=== PATIENT | male | born 1955 | race Caucasian/White ===

== ENCOUNTER 2018-03-15 21:34 | Observation (INO) ==
[2018-03-16] MEDS ORDERED: Morphine Inj 4 MG/ML Vial IV.PUSH PRN (02:09)
[2018-03-16] MEDS: Sod Chloride 0.9% Inj 1,000 ML IV.SIG SCH ×3 (04:38→20:03)
[2018-03-16] MEDS: Piperacil/Tazo 3.375 GM Premix 50 ML IV.SIG SCH ×2 (11:07→20:43)
[2018-03-16] MEDS: Sod Chloride 0.9% Inj 1,000 ML IV.CONT SCH (11:08)
--- NOTE | 2018-03-16 12:31 | P.HP ---
<Stephanie Daniels W - Last Filed: 03/16/18 12:52> History of Present Illness Primary Care Physician: No Primary Care Physician Chief Complaint: abd pain, N/V History of Present Illness: This is a 62 year old male patient with a past medical history which includes polycystic liver disease and seizure reaction to, "all jaclyn." Patient started having abd pain around the end of January and was treated for assumed H. pylori infection with amoxicillin and Flagyl. Patient reports he ate a hamburger from [employer] 03/14/18 around 8:00 PM then began having abdominal pain around 0500 on 03/15/18. Patient then presented to [facility] ER with complaints of abdominal pain and distention that began around 5 AM on 03/15/18. Patient describes pain as a pressure-like pain with a sensation of something being stuck in his epigastric area. Reports pain radiates throughout his abdomen. Patient states that he had vomited about 7 times yesterday. Describes the vomitus as non-bloody and non-bilious. He states he is tried drinking water and taking Zantac with no improvement of symptoms. Patient's last had a bowel movement around 10 AM 03/15/18 but had to use an enema and was normal. Patient denies any fevers, chills, back pains, chest pain, shortness of breath, diarrhea. PMH: polycystic liver disease PSxH: Umbilical hernia repair x 2 tonsillectomy Family medical history: polycyclic liver disease in both brother and sister mother had lung CA father secondary to Social history: Denies ETOH use Denies Tobacco use now or in the past Denies Illicit drug use Medication allergies: reported allergy to, "all jaclyn" albuterol doxycycline lidocaine minocycline tigecycline Review of Systems All other systems reviewed negative except as stated in HPI PMFSH - History History Provided By: Patient - Medical History Medical History: Medical History (Last Updated 03/16/18 @ 04:40 by Janet Betancourt RN) Hypertension Polycystic liver disease Hernia Ulcer - Surgical History Surgical History: Surgical History (Last Reviewed 03/15/18 @ 22:05 by AUGUSTINE Moreno) Hx of hernia repair - Tobacco History Second Hand Smoke Exposure: No Smoking Status: Never smoker - Alcohol History How Often Do You Have a Drink Containing Alcohol: Never - Substance Use History Substance History: No History of Abuse Medications and Allergies Allergies Allergy/AdvReac Type Severity Reaction Status Date / Time albuterol Allergy Severe Seizures Verified 03/16/18 10:29 doxycycline Allergy Severe PT STATES Verified 03/16/18 10:29 LOWERS HIS IQ WHEN HE TAKES lidocaine Allergy Severe Seizures Verified 03/16/18 10:29 minocycline Allergy Severe PT STATES Verified 03/16/18 10:29 LOWER HIS IQ WHEN HE TAKES tigecycline Allergy Severe Seizures Verified 03/16/18 10:29 "ALL JACLYN" Allergy Severe SEIZUES Uncoded 03/16/18 10:29 Novacaine Allergy Severe Seizures Uncoded 03/16/18 10:29 Home Medications Medication Instructions Recorded Confirmed Type lactobacillus rhamnosus R0011 2 cap PO DAILY 03/16/18 03/16/18 History [Probiotic Digestive Care] Active Medications: Active Medications Al Hydroxide/Mg Hydroxide (Milk Of Melvina Liq) 30 ml PO Q12H PRN PRN Reason: Mild Constipation Enalaprilat (Vasotec Inj) 1.25 mg IV.PUSH Q6H PRN PRN Reason: SBP > 180 DBP > 90 Last Admin: 03/16/18 04:38 Dose: 1.25 mg Sodium Chloride (Ns Inj) 1,000 mls @ 125 mls/hr IV.SIG .Q8H [facility] Last Admin: 03/16/18 04:38 Dose: 125 mls/hr Sodium Chloride (Ns Inj) 1,000 mls @ 75 mls/hr IV.CONT .[id number] [facility] Last Admin: 03/16/18 11:08 Dose: Not Given Piperacillin/Tazobactam/Dextrose (Zosyn 3.375 Gm Premix) 50 mls @ 100 mls/hr IV.SIG Q8H [facility] Last Admin: 03/16/18 11:07 Dose: 100 mls/hr Morphine Sulfate (Morphine Inj) 2 mg IV.PUSH Q4H PRN PRN Reason: PAIN 1-10 Ondansetron HCl (Zofran Odt) 4 mg PO Q6H PRN PRN Reason: NAUSEA Senna/Docusate Sodium (Janine-Colace) 1 tab PO BID [facility] Exam Vital signs: Vital Signs 03/16/18 04:00 03/16/18 08:00 03/16/18 12:00 Temperature 98.7 F 98.8 F 98.7 F Pulse Rate 76 80 79 Respiratory Rate 17 16 16 Blood Pressure 170/106 H 136/84 139/91 H Pulse Oximetry 94 L 94 L 94 L Intake & Output 03/15/18 03/16/18 03/16/18 18:59 06:59 18:59 Intake Total 0 / 0 Output Total 250 / 250 200 / 200 Balance -250 / -250 -200 / -200 Weight 90.45 kg Intake: Oral 0 / 0 Output: Urine 250 / 250 200 / 200 Other: Weight On Admission 90.45 kg Narrative: GENERAL: This is a well-nourished, well-developed patient, in no apparent distress. CARDIOVASCULAR: Regular rate and rhythm RESPIRATORY: Clear to auscultation. Breath sounds equal bilaterally. GASTROINTESTINAL: Abdomen soft, tender bilateral upper quadrants worse RUQ, distended. liver 4-5 finger breaths below rib cage, Normal active bowel sounds MUSCULOSKELETAL: Extremities without clubbing, cyanosis, or edema. NEURO: Alert & Oriented x4 to person, place, time, situation. Moves all ext x4 Caprini VTE Risk Assessment Caprini VTE Risk Assessment: No/Low Risk (score <= 1) Caprini Risk Assessment Model: Point Value = 1 Point Value = 2 Point Value = 3 Point Value = 5 Age 41-60 Minor surgery BMI > 25 kg/m2 Swollen legs Varicose veins or History of unexplained or recurrent spontaneous Oral contraceptives or hormone replacement Sepsis (< 1 month) Serious lung disease, including pneumonia (< 1 month) Abnormal pulmonary function Acute myocardial infarction Congestive heart failure (< 1 month) History of inflammatory bowel disease Medical patient at bed rest Age 61-74 Arthroscopic surgery Major open surgery (> 45 min) Laparoscopic surgery (> 45 min) Malignancy Confined to bed (> 72 hours) Immobilizing plaster cast Central venous access Age >= 75 History of VTE Family history of VTE Factor V Leiden Prothrombin [id number] Lupus anticoagulant Anticardiolipin antibodies Elevated serum homocysteine Heparin-induced thrombocytopenia Other congenital or acquired thrombophilia Stroke (< 1 month) Elective arthroplasty Hip, pelvis, or leg fracture Acute spinal cord injury (< 1 month) Prophylaxis Regimen: Total Risk Factor Score Risk Level Prophylaxis Regimen 0-1 Low Early ambulation 2 Moderate Order ONE of the following: *Sequential Compression Device (SCD) *Heparin 5000 units SQ BID 3-4 Higher Order ONE of the following medications: *Heparin 5000 units SQ TID *Enoxaparin/Lovenox 40 mg SQ daily (WT < 150 kg, CrCl > 30 mL/min) *Enoxaparin/Lovenox 30 mg SQ daily (WT < 150 kg, CrCl > 10-29 mL/min) *Enoxaparin/Lovenox 30 mg SQ BID (WT < 150 kg, CrCl > 30 mL/min) AND/OR *Sequential Compression Device (SCD) 5 or more Highest Order ONE of the following medications: *Heparin 5000 units SQ TID (Preferred with Epidurals) *Enoxaparin/Lovenox 40 mg SQ daily (WT < 150 kg, CrCl > 30 mL/min) *Enoxaparin/Lovenox 30 mg SQ daily (WT < 150 kg, CrCl > 10-29 mL/min) *Enoxaparin/Lovenox 30 mg SQ BID (WT < 150 kg, CrCl > 30 mL/min) AND *Sequential Compression Device (SCD) Assessment and Plan - Plan abd pain N/V abnormal abd CT, concern for pancreatic mass Supportive care abnormal CT abd/pelvis with contrast 03/16/18: 1. Ill-defined mass in the head of the pancreas measuring between 3 and 4 cm in diameter and suspicious for pancreatic malignancy. There is some surrounding adenopathy with largest lymph node measuring up to 3.2 x 1.3 cm just anterior to the left renal vein. 2. Innumerable circumscribed low-attenuation lesions in the liver. Differential diagnosis includes simple and complex cysts but cannot exclude metastatic disease. awaiting repeat CMP to check creatinine after CT with contrast plan to order MRI if creatinine is acceptable Patient currently NPO repeat CMP, CBC pending IVF for hydration SCDs for DVT prophylaxis <Deny Ennis - Last Filed: 03/16/18 14:48> History of Present Illness Primary Care Physician: No Primary Care Physician Inpatient Certification: I certify that the inpatient services were ordered in accordance with Medicare regulations governing the order. This includes certification that hospital inpatient services are reasonable and necessary and in the case of services not specified as inpatient-only under 42 CFR 419.22(n), that they are appropriately provided as inpatient services in accordance to with the 2-midnight benchmark under 43 CFR 412.3(e) [facility] - Medical History Medical History: Medical History (Last Updated 03/16/18 @ 04:40 by Janet Betancourt RN) Hypertension Polycystic liver disease Hernia Ulcer - Surgical History Surgical History: Surgical History (Last Reviewed 03/15/18 @ 22:05 by AUGUSTINE Moreno) Hx of hernia repair Medications and Allergies Active Medications: Active Medications Al Hydroxide/Mg Hydroxide (Milk Of Magnbria Liq) 30 ml PO Q12H PRN PRN Reason: Mild Constipation Enalaprilat (Vasotec Inj) 1.25 mg IV.PUSH Q6H PRN PRN Reason: SBP > 180 DBP > 90 Last Admin: 03/16/18 04:38 Dose: 1.25 mg Sodium Chloride (Ns Inj) 1,000 mls @ 125 mls/hr IV.SIG .Q8H [facility] Last Admin: 03/16/18 04:38 Dose: 125 mls/hr Sodium Chloride (Ns Inj) 1,000 mls @ 75 mls/hr IV.CONT .[id number] [facility] Last Admin: 03/16/18 11:08 Dose: Not Given Piperacillin/Tazobactam/Dextrose (Zosyn 3.375 Gm Premix) 50 mls @ 100 mls/hr IV.SIG Q8H [facility] Last Admin: 03/16/18 11:07 Dose: 100 mls/hr Morphine Sulfate (Morphine Inj) 2 mg IV.PUSH Q4H PRN PRN Reason: PAIN 1-10 Ondansetron HCl (Zofran Odt) 4 mg PO Q6H PRN PRN Reason: NAUSEA Senna/Docusate Sodium (Janine-Colace) 1 tab PO BID [facility] Exam Vital signs: Vital Signs 03/16/18 04:00 03/16/18 08:00 03/16/18 12:00 Temperature 98.7 F 98.8 F 98.7 F Pulse Rate 76 80 79 Respiratory Rate 17 16 16 Blood Pressure 170/106 H 136/84 139/91 H Pulse Oximetry 94 L 94 L 94 L Intake & Output 03/15/18 03/16/18 03/16/18 18:59 06:59 18:59 Intake Total 0 / 0 Output Total 250 / 250 200 / 200 Balance -250 / -250 -200 / -200 Weight 90.45 kg Intake: Oral 0 / 0 Output: Urine 250 / 250 200 / 200 Other: Weight On Admission 90.45 kg Results - Labs CBC & Chem 7: 03/16/18 13:00 07/18/18 13:00 Labs: Laboratory Results - last 24 hr 03/16/18 03/16/18 03/16/18 13:00 13:00 13:00 WBC 15.2 H RBC 5.44 Hgb 15.7 Hct 46.3 MCV 85.1 MCH 28.8 MCHC 33.8 RDW 13.5 Plt Count 270 MPV 8.8 Neut % (Auto) 80.2 H Lymph % (Auto) 8.8 L [place] % (Auto) 9.9 H Eos % (Auto) 0.6 Baso % (Auto) 0.5 Neut # (Auto) 12.2 H Lymph # (Auto) 1.3 [place] # (Auto) 1.5 H Eos # (Auto) 0.1 Baso # (Auto) 0.1 WBC Differential . Differential Comment Auto diff final Sodium 140 Potassium 3.5 Chloride 105 Carbon Dioxide 28.7 Anion Gap 6 BUN 10 Creatinine 1.01 Estimated GFR 75 L Random Glucose 139 H Calcium 8.5 D Total Bilirubin 0.9 AST 381 H ALT 64 Alkaline Phosphatase 67 Total Protein 7.8 D Albumin 3.7 Lipase 73 Caprini VTE Risk Assessment Caprini Risk Assessment Model: Point Value = 1 Point Value = 2 Point Value = 3 Point Value = 5 Age 41-60 Minor surgery BMI > 25 kg/m2 Swollen legs Varicose veins or History of unexplained or recurrent spontaneous Oral contraceptives or hormone replacement Sepsis (< 1 month) Serious lung disease, including pneumonia (< 1 month) Abnormal pulmonary function Acute myocardial infarction Congestive heart failure (< 1 month) History of inflammatory bowel disease Medical patient at bed rest Age 61-74 Arthroscopic surgery Major open surgery (> 45 min) Laparoscopic surgery (> 45 min) Malignancy Confined to bed (> 72 hours) Immobilizing plaster cast Central venous access Age >= 75 History of VTE Family history of VTE Factor V Leiden Prothrombin [id number] Lupus anticoagulant Anticardiolipin antibodies Elevated serum homocysteine Heparin-induced thrombocytopenia Other congenital or acquired thrombophilia Stroke (< 1 month) Elective arthroplasty Hip, pelvis, or leg fracture Acute spinal cord injury (< 1 month) Prophylaxis Regimen: Total Risk Factor Score Risk Level Prophylaxis Regimen 0-1 Low Early ambulation 2 Moderate Order ONE of the following: *Sequential Compression Device (SCD) *Heparin 5000 units SQ BID 3-4 Higher Order ONE of the following medications: *Heparin 5000 units SQ TID *Enoxaparin/Lovenox 40 mg SQ daily (WT < 150 kg, CrCl > 30 mL/min) *Enoxaparin/Lovenox 30 mg SQ daily (WT < 150 kg, CrCl > 10-29 mL/min) *Enoxaparin/Lovenox 30 mg SQ BID (WT < 150 kg, CrCl > 30 mL/min) AND/OR *Sequential Compression Device (SCD) 5 or more Highest Order ONE of the following medications: *Heparin 5000 units SQ TID (Preferred with Epidurals) *Enoxaparin/Lovenox 40 mg SQ daily (WT < 150 kg, CrCl > 30 mL/min) *Enoxaparin/Lovenox 30 mg SQ daily (WT < 150 kg, CrCl > 10-29 mL/min) *Enoxaparin/Lovenox 30 mg SQ BID (WT < 150 kg, CrCl > 30 mL/min) AND *Sequential Compression Device (SCD) Assessment and Plan - Attending Attestation Patient examined. Assessment and plan formulated with Stephanie Daniels PA-C. I agree with the above. await result of MRI A/P with contrast
[2018-03-16 13:32] LABS: Albumin 3.7 g/dL (3.4-5.0); Anion Gap 6 meq/L (5-15); Aspartate Aminotransferase 381 U/L (15-37); Blood Urea Nitrogen 10 mg/dL (7-18); Calcium 8.5 mg/dL (8.5-10.1); Carbon Dioxide 28.7 meq/L (21.0-32.0); Chloride 105 meq/L (98-107); Glomerular Filtration Rate 75 mL/min (>89); Glucose,Random 139 mg/dL (74-106); Potassium 3.5 meq/L (3.5-5.1); Sodium 140 meq/L (136-145)
[2018-03-16 13:35] LABS: Alanine Aminotransferase 64 U/L (12-78); Alkaline Phosphatase 67 U/L (45-117); Total Protein 7.8 g/dL (6.4-8.2)
[2018-03-16 13:54] LABS: Baso # (Auto) 0.1 th/mm3 (0.0-0.2); Baso % (Auto) 0.5 % (0.0-2.0); Eos # (Auto) 0.1 th/mm3 (0.0-0.4); Eos % (Auto) 0.6 % (0.0-4.0); Hematocrit 46.3 % (39.0-51.0); Hemoglobin 15.7 gm/dL (13.0-17.0); Lymph # (Auto) 1.3 th/mm3 (1.0-4.8); Lymph % (Auto) 8.8 % (9.0-44.0); Mean Corpuscular HGB Conc 33.8 % (32.0-36.0); Mean Corpuscular Hemoglobin 28.8 pg (27.0-34.0); Mean Corpuscular Volume 85.1 fL (80.0-100.0); Mean Platelet Volume 8.8 fL (7.0-11.0); Mono # (Auto) 1.5 th/mm3 (0.0-0.9); Mono % (Auto) 9.9 % (0.0-8.0); Neut # (Auto) 12.2 th/mm3 (1.8-7.7); Neut % (Auto) 80.2 % (16.0-70.0); Platelet Count 270 th/mm3 (150-450); Red Blood Count 5.44 mil/mm3 (4.50-5.90); Red Cell Distribution Width 13.5 % (11.6-17.2); White Blood Count 15.2 th/mm3 (4.0-11.0)
[2018-03-16] MEDS ORDERED: Gadobutrol PF 10 MMOL/10 ML Vial (for RAD) IV.SIG ONE (18:55)
[2018-03-16] MEDS: Senna/Docusate Sodium 8.6/50 MG Tablet PO SCH (20:43)
--- NOTE | 2018-03-16 23:21 | MR ---
EXAM DATE: 03/16/2018 7:34 PM EDT AGE/SEX: 62 years / Male INDICATIONS: Mass. Abnormal CT, liver cyst and pancreatic mass. CLINICAL DATA: This is the patient's initial encounter. Patient reports that signs and symptoms have been present for 1 day and indicates a pain score of 0/10. MEDICAL/SURGICAL HISTORY: Hypertension. Polycystic Liver Disease, Ulcer, Hernia Inguinal herni a repair. COMPARISON: [facility], CT ABDOMEN & PELVIS W/O CONTRAST, 03/15/2018. [facility], CT ABDOMEN & PELVIS W CONT RAST, 03/16/2018. . TECHNIQUE: Multiplanar, multisequence images of the abdomen were obtained prior to and following adm inistration of 9 ml Gadavist (gadobutrol) contrast as a single exam dose with dynamic multiphase tech nique. FINDINGS: Liver: Innumerable varying size simple cysts throughout the liver measuring in size from several mill imeters to 5.5 cm. The cyst been present on prior CTs dating back to 2009. No abnormal areas of enhan cement within the hepatic parenchyma. Gallbladder: No gallstones seen. Spleen: The spleen is unremarkable. Pancreas: Abnormal appearance to the head of the pancreas with rounded area of signal abnormality jodie suring 3.7 x 4.4 cm. There is mild T2 prolongation and T1 prolongation; on dynamic postcontrast imagi ng, there is some questionable mild peripheral enhancement. The body and tail the pancreas are normal in appearance. No pancreatic ductal dilatation. No peripancreatic fluid. No peripancreatic fatty ind uration. Adrenals: The adrenal glands appear normal. Kidneys: Both kidneys appear normal with symmetric nephrograms and no focal parenchymal abnormalities . There is no hydronephrosis on either side. A few small cortical cysts are present bilaterally. Retroperitoneum: The aorta is unremarkable. There is no pathologic abdominal lymphadenopathy. CONCLUSION: 1. 4 cm partially cystic masslike abnormality in the head of the pancreas does not demonstrate signi ficant enhancement. Malignancy cannot be excluded. May consider performing outpatient PET/CT scan wit h fluorodeoxyglucose to evaluate whether this is a metabolically active lesion and to help in decisio n making regarding possible biopsy. 2. Numerous simple cysts throughout the liver and a few renal cysts have benign characteristics. Electronically signed by: Jorge L Oreilly MD 03/16/2018 11:20 PM EDT
[2018-03-17] MEDS: Sod Chloride 0.9% Inj 1,000 ML IV.CONT SCH (01:44)
[2018-03-17] MEDS: Piperacil/Tazo 3.375 GM Premix 50 ML IV.SIG SCH ×3 (02:06→19:32)
[2018-03-17 07:22] LABS: Baso % (Auto) 0.1 % (0.0-2.0); Eos # (Auto) 0.1 th/mm3 (0.0-0.4); Eos % (Auto) 0.3 % (0.0-4.0); Hematocrit 43.8 % (39.0-51.0); Hemoglobin 14.8 gm/dL (13.0-17.0); Lymph # (Auto) 1.6 th/mm3 (1.0-4.8); Lymph % (Auto) 9.7 % (9.0-44.0); Mean Corpuscular HGB Conc 33.8 % (32.0-36.0); Mean Corpuscular Hemoglobin 28.9 pg (27.0-34.0); Mean Corpuscular Volume 85.8 fL (80.0-100.0); Mono # (Auto) 1.9 th/mm3 (0.0-0.9); Mono % (Auto) 11.6 % (0.0-8.0); Neut # (Auto) 12.5 th/mm3 (1.8-7.7); Neut % (Auto) 78.3 % (16.0-70.0); Platelet Count 232 th/mm3 (150-450); Red Blood Count 5.11 mil/mm3 (4.50-5.90); Red Cell Distribution Width 13.6 % (11.6-17.2)
[2018-03-17 07:32] LABS: Albumin 3.3 g/dL (3.4-5.0); Anion Gap 11 meq/L (5-15); Aspartate Aminotransferase 189 U/L (15-37); Blood Urea Nitrogen 11 mg/dL (7-18); Calcium 8.6 mg/dL (8.5-10.1); Carbon Dioxide 24.9 meq/L (21.0-32.0); Chloride 103 meq/L (98-107); Glomerular Filtration Rate 82 mL/min (>89); Glucose,Random 121 mg/dL (74-106); Potassium 3.4 meq/L (3.5-5.1); Sodium 139 meq/L (136-145)
[2018-03-17 07:34] LABS: Alanine Aminotransferase 50 U/L (12-78)
[2018-03-17 07:36] LABS: Alkaline Phosphatase 63 U/L (45-117); Total Protein 7.4 g/dL (6.4-8.2)
[2018-03-17] MEDS: Senna/Docusate Sodium 8.6/50 MG Tablet PO SCH ×2 (09:34→20:10)
[2018-03-17] MEDS: Sod Chloride 0.9% Inj 1,000 ML IV.SIG SCH (09:34)
--- NOTE | 2018-03-17 11:24 | P.PNIM ---
Subjective Interval history: No new complaints. Physical Exam Vital signs: Vital Signs 03/16/18 12:00 03/16/18 16:00 03/16/18 19:27 Temperature 98.7 F 99.0 F 98.7 F Pulse Rate 79 78 89 Respiratory Rate 16 18 17 Blood Pressure 139/91 H 171/85 H 153/86 H Pulse Oximetry 94 L 95 92 L Narrative: GENERAL: This is a well-nourished, well-developed patient, in no apparent distress. CARDIOVASCULAR: Regular rate and rhythm without murmurs, gallops, or rubs. RESPIRATORY: Clear to auscultation. Breath sounds equal bilaterally. No wheezes , rales, or rhonchi. GASTROINTESTINAL: Abdomen soft, non-tender, nondistended. Normal active bowel sounds liver is palpable 4 inches below the rib margin on the right MUSCULOSKELETAL: Extremities without clubbing, cyanosis, or edema. NEURO: Alert & Oriented x4 to person, place, time, situation. Moves all ext x4 Results - Labs CBC & Chem 7: 03/17/18 06:15 03/17/18 06:15 Laboratory Results - last 24 hr 03/16/18 03/16/18 03/16/18 13:00 13:00 13:00 WBC 15.2 H RBC 5.44 Hgb 15.7 Hct 46.3 MCV 85.1 MCH 28.8 MCHC 33.8 RDW 13.5 Plt Count 270 MPV 8.8 Neut % (Auto) 80.2 H Lymph % (Auto) 8.8 L [place] % (Auto) 9.9 H Eos % (Auto) 0.6 Baso % (Auto) 0.5 Neut # (Auto) 12.2 H Lymph # (Auto) 1.3 [place] # (Auto) 1.5 H Eos # (Auto) 0.1 Baso # (Auto) 0.1 WBC Differential . Differential Comment Auto diff final Sodium 140 Potassium 3.5 Chloride 105 Carbon Dioxide 28.7 Anion Gap 6 BUN 10 Creatinine 1.01 Estimated GFR 75 L Random Glucose 139 H Calcium 8.5 D Total Bilirubin 0.9 AST 381 H ALT 64 Alkaline Phosphatase 67 Total Protein 7.8 D Albumin 3.7 Lipase 73 03/17/18 03/17/18 06:15 06:15 WBC 16.0 H RBC 5.11 Hgb 14.8 Hct 43.8 MCV 85.8 MCH 28.9 MCHC 33.8 RDW 13.6 Plt Count 232 MPV 9.0 Neut % (Auto) 78.3 H Lymph % (Auto) 9.7 [place] % (Auto) 11.6 H Eos % (Auto) 0.3 Baso % (Auto) 0.1 Neut # (Auto) 12.5 H Lymph # (Auto) 1.6 [place] # (Auto) 1.9 H Eos # (Auto) 0.1 Baso # (Auto) 0.0 WBC Differential . Differential Comment Auto diff final Sodium 139 Potassium 3.4 L Chloride 103 Carbon Dioxide 24.9 Anion Gap 11 BUN 11 Creatinine 0.93 Estimated GFR 82 L Random Glucose 121 H Calcium 8.6 Total Bilirubin 1.0 AST 189 H ALT 50 Alkaline Phosphatase 63 Total Protein 7.4 Albumin 3.3 L Lipase - Imaging CT abd/pelvis wihout contrast (03/15) CONCLUSION: 1. There is a suspected mass in the pancreatic head measuring up to 4 cm in diameter. Innumerable hepatic lesions present of uncertain etiology. Consider complex cysts or necrotic metastatic lesions. Further evaluation with MRI of the abdomen with contrast recommended. 2. Mildly enlarged lymph nodes in bernabe hepatis. Probable layering gallstones within the gallbladder. CT abd/pelvis with IV contrast (03/16) CONCLUSION: 1. Ill-defined mass in the head of the pancreas measuring between 3 and 4 cm in diameter and suspicious for pancreatic malignancy. There is some surrounding adenopathy with largest lymph node measuring up to 3.2 x 1.3 cm just anterior to the left renal vein. 2. Innumerable circumscribed low-attenuation lesions in the liver. Differential diagnosis includes simple and complex cysts but cannot exclude metastatic disease. Abdomen MRI 03/16/18 CONCLUSION: 1. 4 cm partially cystic masslike abnormality in the head of the pancreas does not demonstrate significant enhancement. Malignancy cannot be excluded. May consider performing outpatient PET/CT scan with fluorodeoxyglucose to evaluate whether this is a metabolically active lesion and to help in decision making regarding possible biopsy. 2. Numerous simple cysts throughout the liver and a few renal cysts have benign characteristics. Assessment and Plan - Assessment (1) Abdominal pain Code(s): R10.9 - Unspecified abdominal pain Status: Acute Plan: - 62 y/o M with h/o polycystic liver disease and seizure reaction to, "all rosa." - Patient started having abd pain around the end of January and was treated for assumed H. pylori infection with amoxicillin and Flagyl. - Patient reports he ate a hamburger from [employer] 03/14/18 around 8:00 PM then began having abdominal pain around 0500 on 03/15/18. - Patient then presented to [facility] ER with complaints of abdominal pain and distention that began around 5 AM on 03/15/18. - Patient describes pain as a pressure-like pain with a sensation of something being stuck in his epigastric area. Reports pain radiates throughout his abdomen. - Patient states that he had vomited about 7 times the day prior to admission - Pt describes the vomitus as non-bloody and non-bilious. - Pt states he tried drinking water and taking Zantac with no improvement of symptoms. - CT a/p without contrast (03/15) - suspected head of the Pancrease mass - innumerable hepatic lesions (c/w pt's hx of polycystic liver disease) - CT A/P with contrast (03/16) - head of the pancrease mass - some surrounding adenopathy with largest LN 3.2 x 1.3 cm anterior to the left renal vein - innumerable hepatic lesions - MRI A/P with contrast (03/16) - 4cm cystic masslike abnormality in the head of the pancreas without significant enhancement - PET/CT recommended - numerous simple cyst thourout the fiver & a few renal cysts with benign characteristics - AST 461 (03/15), 381 (03/16), 189 (03/17). Alcohol abuse? - leukocytosis, unclear etiology. -WBC 18 (03/15), 15 (03/16), 16 (03/17) - continue zosyn for now (03/15 - present) - CXR (03/15) --> no acute findings - UA (03/15) --> moderate occult blood, cx NOT indicated - obtain repeat UA - Case d/w Oncology, Dr. Brandon Parr. He will consult - Case d/w Gastroenterology, Dr. Alvarez. He will consult - Repeat CBC, CMP in AM 03/18 - continue NPO for now - possible EUS with Pancrease Bx later today or 03/18 - DVT prophylaxis with SCDs - supportive care (2) Leukocytosis, unspecified Code(s): D72.829 - Elevated white blood cell count, unspecified Status: Acute Plan: - see above (3) Pancreatic lesion Code(s): K86.9 - Disease of pancreas, unspecified Status: Acute Plan: - see above (4) Polycystic liver disease, congenital Code(s): Q44.6 - Cystic disease of liver Status: Acute (1) Abdominal pain Qualifiers: Qualified Code(s): R10.84 - Generalized abdominal pain
--- NOTE | 2018-03-17 13:04 | P.CONGI ---
History of Present Illness Consult date: 03/17/18 Consult reason: Pancreatic mass Chief complaint: Pancreatic mass, vomiting History of Present Illness: This is a 62 yo M with PMH significant for polycystic liver disease and history of H. Pylori infection who presented to the [place] [facility] yesterday with complaints of abdominal pain, nausea and vomiting that began 4 days ago. Pt had some abdominal pain in early January after a small amount of alcohol that he states was similar to the pains he had when he had a prior H Pylori infection. His PCP at [facility] prescribed him Amoxicillin and Flagyl, which he states he completed the entire course and did get complete resolution from his abdominal pain until four days ago. Pt reports having hamburgers the night before the pain began. Pain is now located in his mid abdomen above his umbilicus, constant, described as aching. Has tried aloe juice, CBD oil, and probiotics with no relief. Also notes nausea and vomiting, denies hematemesis and coffee ground emesis. Denies unintentional weight loss, has lost 36 pounds over the past 2 years but states this was intentional. Denies personal or family history of pancreatic issues. Admits to drinking 3 times per week. Denies new OTC or prescription medication. Last EGD 20 years ago and states normal exam. Last colonoscopy done 2 years ago and believes they removed some polyps. <Geni Stevens - Last Filed: 03/17/18 13:06> Review of Systems Gastrointestinal: Reports abdominal pain, Reports nausea, Reports vomiting <Geni Stevens - Last Filed: 03/17/18 13:06> [facility] - History History Provided By: Patient - Medical History Medical History: Medical History (Last Updated 03/16/18 @ 04:40 by Janet Betancourt RN) Hypertension Polycystic liver disease Hernia Ulcer - Surgical History Surgical History: Surgical History (Last Reviewed 03/15/18 @ 22:05 by AUGUSTINE Moreno) Hx of hernia repair - Tobacco History Second Hand Smoke Exposure: No Smoking Status: Never smoker - Alcohol History How Often Do You Have a Drink Containing Alcohol: Never - Substance Use History Substance History: No History of Abuse <Geni Stevens - Last Filed: 03/17/18 13:06> - Medical History Medical History: Medical History (Last Updated 03/16/18 @ 04:40 by Janet Betancourt RN) Hypertension Polycystic liver disease Hernia Ulcer - Surgical History Surgical History: Surgical History (Last Reviewed 03/15/18 @ 22:05 by AUGUSTINE Moreno) Hx of hernia repair <Cliev Alvarez - Last Filed: 03/17/18 17:58> Medications and Allergies Active Medications: Active Medications Al Hydroxide/Mg Hydroxide (Milk Of Magnesia Liq) 30 ml PO Q12H PRN PRN Reason: Mild Constipation Enalaprilat (Vasotec Inj) 1.25 mg IV.PUSH Q6H PRN PRN Reason: SBP > 180 DBP > 90 Last Admin: 03/16/18 04:38 Dose: 1.25 mg Sodium Chloride (Ns Inj) 1,000 mls @ 125 mls/hr IV.SIG .Q8H [facility] Last Admin: 03/17/18 09:34 Dose: Not Given Sodium Chloride (Ns Inj) 1,000 mls @ 75 mls/hr IV.CONT .[id number] [facility] Last Admin: 03/17/18 01:44 Dose: 75 mls/hr Piperacillin/Tazobactam/Dextrose (Zosyn 3.375 Gm Premix) 50 mls @ 100 mls/hr IV.SIG Q8H [facility] Last Admin: 03/17/18 11:16 Dose: 100 mls/hr Morphine Sulfate (Morphine Inj) 2 mg IV.PUSH Q4H PRN PRN Reason: PAIN 1-10 Ondansetron HCl (Zofran Odt) 4 mg PO Q6H PRN PRN Reason: NAUSEA Senna/Docusate Sodium (Janine-Colace) 1 tab PO BID [facility] Last Admin: 03/17/18 09:34 Dose: 1 tab <Geni Stevens - Last Filed: 03/17/18 13:06> Active Medications: Active Medications Al Hydroxide/Mg Hydroxide (Milk Of Magnesia Liq) 30 ml PO Q12H PRN PRN Reason: Mild Constipation Chlorhexidine Gluconate (Chlorhexidine 2% Cloth) 3 pack TOPICAL NETWORK ANN[employer]NCER [facility] Stop: 03/20/18 13:36 Enalaprilat (Vasotec Inj) 1.25 mg IV.PUSH Q6H PRN PRN Reason: SBP > 180 DBP > 90 Last Admin: 03/16/18 04:38 Dose: 1.25 mg Piperacillin/Tazobactam/Dextrose (Zosyn 3.375 Gm Premix) 50 mls @ 100 mls/hr IV.SIG Q8H [facility] Last Admin: 03/17/18 11:16 Dose: 100 mls/hr Potassium Chloride/Sodium Chloride (Ns + Kcl 20 Meq Inj) 1,000 mls @ 75 mls/hr IV.CONT .[id number] [facility] Lactated Ringer's (Lr 1000 Ml Inj) 1,000 mls @ 30 mls/hr IV.SIG .Q24H [facility] Stop: 03/20/18 13:36 Sodium Chloride (Ns Inj) 500 mls @ 30 mls/hr IV.SIG .Q10H [facility] Stop: 03/20/18 13:36 Metoprolol Tartrate (Lopressor) 25 mg PO NETWORK ANN[employer]NCER [facility] Stop: 03/20/18 13:36 Morphine Sulfate (Morphine Inj) 2 mg IV.PUSH Q4H PRN PRN Reason: PAIN 1-10 Ondansetron HCl (Zofran Odt) 4 mg PO Q6H PRN PRN Reason: NAUSEA Povidone Iodine (Betadine 5% Antisepsis Kit) 1 applicatio EACH NARE NETWORK ANN[employer]NCER [facility] Stop: 03/20/18 13:36 Senna/Docusate Sodium (Janine-Colace) 1 tab PO BID [facility] Last Admin: 03/17/18 09:34 Dose: 1 tab <Clive Alvarez E - Last Filed: 03/17/18 17:58> Allergies Allergy/AdvReac Type Severity Reaction Status Date / Time albuterol Allergy Severe Seizures Verified 03/16/18 10:29 doxycycline Allergy Severe PT STATES Verified 03/16/18 10:29 LOWERS HIS IQ WHEN HE TAKES lidocaine Allergy Severe Seizures Verified 03/16/18 10:29 minocycline Allergy Severe PT STATES Verified 03/16/18 10:29 LOWER HIS IQ WHEN HE TAKES tigecycline Allergy Severe Seizures Verified 03/16/18 10:29 "ALL JACLYN" Allergy Severe SEIZUES Uncoded 03/16/18 10:29 Novacaine Allergy Severe Seizures Uncoded 03/16/18 10:29 Home Medications Medication Instructions Recorded Confirmed Type lactobacillus rhamnosus R0011 2 cap PO DAILY 03/16/18 03/16/18 History [Probiotic Digestive Care] Exam Vital signs: Vital Signs 03/16/18 16:00 18 19:27 03/16/18 23:40 Temperature 99.0 F 98.7 F 98.3 F Pulse Rate 78 89 84 Respiratory Rate 18 17 17 Blood Pressure 171/85 H 153/86 H 129/76 Pulse Oximetry 95 92 L 92 L 03/17/18 03:31 03/17/18 08:00 03/17/18 12:00 Temperature 98.7 F 99.2 F 98.3 F Pulse Rate 82 83 Respiratory Rate 17 16 16 Blood Pressure 127/78 137/89 142/88 H Pulse Oximetry 92 L 95 96 Intake & Output 03/16/18 03/17/18 03/17/18 18:59 06:59 18:59 Intake Total 1390 / 1390 Output Total 200 / 200 300 / 300 Balance -200 / -200 1390 / 1390 -300 / -300 Weight 90.45 kg Intake: IV 1150 / 1150 Zosyn 3.375 GM Premix 50 ML @ 150 / 150 100 mls/hr IV.SIG Q8H [facility] Rx#: [id number] NS Inj 1,000 ML @ 125 mls/hr IV 1000 / 1000 .SIG .Q8H [facility] Rx#:[id number] Oral 240 / 240 Output: Urine 200 / 200 300 / 300 Other: # Voids 3 Weight On Admission 90.45 kg - Constitutional no acute distress - Routine HEENT Exam Head: Present: normocephalic, atraumatic - Routine Respiratory Exam Absent: accessory muscle use - Routine Cardiovascular Exam Present: RRR - Routine Abdominal Exam Present: soft, normoactive bowel sounds, tenderness (RUQ and epigastric tenderness ), distended - Routine Skin Exam Present: dry, warm - Routine Neurological Exam Present: alert, oriented X3 <Geni Stevens - Last Filed: 03/17/18 13:06> Vital signs: Vital Signs 03/16/18 19:27 18 23:40 03/17/18 03:31 Temperature 98.7 F 98.3 F 98.7 F Pulse Rate 89 84 82 Respiratory Rate 17 17 17 Blood Pressure 153/86 H 129/76 127/78 Pulse Oximetry 92 L 92 L 92 L 03/17/18 08:00 03/17/18 12:00 Temperature 99.2 F 98.3 F Pulse Rate 83 Respiratory Rate 16 16 Blood Pressure 137/89 142/88 H Pulse Oximetry 95 96 Intake & Output 03/16/18 03/17/18 03/17/18 18:59 06:59 18:59 Intake Total 1390 / 1390 Output Total 200 / 200 300 / 300 Balance -200 / -200 1390 / 1390 -300 / -300 Weight 90.45 kg Intake: IV 1150 / 1150 Zosyn 3.375 GM Premix 50 ML @ 150 / 150 100 mls/hr IV.SIG Q8H [facility] Rx#: [id number] NS Inj 1,000 ML @ 125 mls/hr IV 1000 / 1000 .SIG .Q8H [facility] Rx#:[id number] Oral 240 / 240 Output: Urine 200 / 200 300 / 300 Other: # Voids 3 Weight On Admission 90.45 kg <Clive Alvarez E - Last Filed: 03/17/18 17:58> Results - Labs CBC & Chem 7: 03/17/18 06:15 03/17/18 06:15 Labs: Laboratory Results - last 24 hr 03/16/18 03/16/18 03/16/18 13:00 13:00 13:00 WBC 15.2 H RBC 5.44 Hgb 15.7 Hct 46.3 MCV 85.1 MCH 28.8 MCHC 33.8 RDW 13.5 Plt Count 270 MPV 8.8 Neut % (Auto) 80.2 H Lymph % (Auto) 8.8 L [place] % (Auto) 9.9 H Eos % (Auto) 0.6 Baso % (Auto) 0.5 Neut # (Auto) 12.2 H Lymph # (Auto) 1.3 [place] # (Auto) 1.5 H Eos # (Auto) 0.1 Baso # (Auto) 0.1 WBC Differential . Differential Comment Auto diff final Sodium 140 Potassium 3.5 Chloride 105 Carbon Dioxide 28.7 Anion Gap 6 BUN 10 Creatinine 1.01 Estimated GFR 75 L Random Glucose 139 H Calcium 8.5 D Total Bilirubin 0.9 AST 381 H ALT 64 Alkaline Phosphatase 67 Total Protein 7.8 D Albumin 3.7 Lipase 73 03/17/18 03/17/18 06:15 06:15 WBC 16.0 H RBC 5.11 Hgb 14.8 Hct 43.8 MCV 85.8 MCH 28.9 MCHC 33.8 RDW 13.6 Plt Count 232 MPV 9.0 Neut % (Auto) 78.3 H Lymph % (Auto) 9.7 [place] % (Auto) 11.6 H Eos % (Auto) 0.3 Baso % (Auto) 0.1 Neut # (Auto) 12.5 H Lymph # (Auto) 1.6 [place] # (Auto) 1.9 H Eos # (Auto) 0.1 Baso # (Auto) 0.0 WBC Differential . Differential Comment Auto diff final Sodium 139 Potassium 3.4 L Chloride 103 Carbon Dioxide 24.9 Anion Gap 11 BUN 11 Creatinine 0.93 Estimated GFR 82 L Random Glucose 121 H Calcium 8.6 Total Bilirubin 1.0 AST 189 H ALT 50 Alkaline Phosphatase 63 Total Protein 7.4 Albumin 3.3 L Lipase - Imaging Impressions Abdomen MRI 03/16/18 00:00 CONCLUSION: 1. 4 cm partially cystic masslike abnormality in the head of the pancreas does not demonstrate significant enhancement. Malignancy cannot be excluded. May consider performing outpatient PET/CT scan with fluorodeoxyglucose to evaluate whether this is a metabolically active lesion and to help in decision making regarding possible biopsy. 2. Numerous simple cysts throughout the liver and a few renal cysts have benign characteristics. <Geni Stevens - Last Filed: 03/17/18 13:06> - Labs CBC & Chem 7: 03/17/18 06:15 03/17/18 06:15 Labs: Laboratory Results - last 24 hr 03/17/18 03/17/18 03/17/18 06:15 06:15 13:40 WBC 16.0 H RBC 5.11 Hgb 14.8 Hct 43.8 MCV 85.8 MCH 28.9 MCHC 33.8 RDW 13.6 Plt Count 232 MPV 9.0 Neut % (Auto) 78.3 H Lymph % (Auto) 9.7 [place] % (Auto) 11.6 H Eos % (Auto) 0.3 Baso % (Auto) 0.1 Neut # (Auto) 12.5 H Lymph # (Auto) 1.6 [place] # (Auto) 1.9 H Eos # (Auto) 0.1 Baso # (Auto) 0.0 WBC Differential . Differential Comment Auto diff final Sodium 139 Potassium 3.4 L Chloride 103 Carbon Dioxide 24.9 Anion Gap 11 BUN 11 Creatinine 0.93 Estimated GFR 82 L Random Glucose 121 H Calcium 8.6 Total Bilirubin 1.0 AST 189 H ALT 50 Alkaline Phosphatase 63 Total Protein 7.4 Albumin 3.3 L Urine Color Yellow Urine Clarity Clear Urine pH 5.0 Ur Specific [place] 1.030 Urine Protein 30 H Urine Glucose (UA) Negative Urine Ketones 20 Urine Occult Blood Negative Urine Nitrate Negative Urine Bilirubin Negative Urine Urobilinogen 2.0 H Ur Leukocyte Esterase Negative Urine RBC Less than 1 Urine WBC 1 Urine Mucus Few H Micro UA Comment Culture not ind Urine Culture Comments Culture not ind - Imaging Impressions Abdomen MRI 03/16/18 00:00 CONCLUSION: 1. 4 cm partially cystic masslike abnormality in the head of the pancreas does not demonstrate significant enhancement. Malignancy cannot be excluded. May consider performing outpatient PET/CT scan with fluorodeoxyglucose to evaluate whether this is a metabolically active lesion and to help in decision making regarding possible biopsy. 2. Numerous simple cysts throughout the liver and a few renal cysts have benign characteristics. <Clive Alvarez - Last Filed: 03/17/18 17:58> Assessment and Plan (1) Pancreatic lesion Status: Acute Code(s): K86.9 - Disease of pancreas, unspecified - Plan Assessment: - Pancreatic mass seen on imaging Pt with abdominal pain that began early January, states felt like a similar H. Pylori infection so his PCP [facility] started him on Amoxicillin and Flagyl- states complete resolution of pain until 4 days ago- pain located mid abdomen above his umbilicus, constant, aching. Has tried Aloe juice, probiotics, and CBD oil with no relief. Associated nausea and vomiting. Denies personal and family history of pancreatic issues. Drinks alcohol 3 x/week but hasn't had any since pain in January. Denies smoking and illicit drug use. CT abdomen and pelvis W IV contrast --> . Ill-defined mass in the head of the pancreas measuring between 3 and 4 cm in diameter and suspicious for pancreatic malignancy. There is some surrounding adenopathy with largest lymph node measuring up to 3.2 x 1.3 cm just anterior to the left renal vein. Innumerable circumscribed low-attenuation lesions in the liver. Differential diagnosis includes simple and complex cysts but cannot exclude metastatic disease. MR abdomen W and WO contrast --> 4 cm partially cystic masslike abnormality in the head of the pancreas does not demonstrate significant enhancement. Malignancy cannot be excluded. Numerous simple cysts throughout the liver and a few renal cysts have benign characteristics. Last EGD 20 years ago, states normal exam. Last colonoscopy 2 years ago and states polyps removed. - Elevated AST- currently 189- rest of LFTs WNL Pt with known history of polycystic liver disease Plan: EGD/EUS with FNA today Obtain consent Keep NPO CA 19-9 Further recommendations based on findings of above Pt has been seen and examined by myself and Dr. Alvarez and this note is written on his behalf <Geni Stevens - Last Filed: 03/17/18 13:06> (1) Pancreatic lesion Status: Acute Code(s): K86.9 - Disease of pancreas, unspecified - Attending Attestation Patient was seen and examined Agree with above Continue with current supportive care Monitor labs EUS with FNA today <Clive Alvarez - Last Filed: 03/17/18 17:58>
[2018-03-17] MEDS ORDERED: Potassium Chlor 20 mEq Premix 20 MEQ/100 ML PIGGYBACK IV.SIG ONE (13:09)
[2018-03-17] MEDS ORDERED: Metoprolol Tartrate 25 MG Tablet PO SCH (13:45)
[2018-03-17] MEDS ORDERED: Chlorhexidine Gluconate 2% 1 Pack (2 Cloths) TOPICAL SCH (13:45)
[2018-03-17] MEDS ORDERED: Sodium Chlor 0.9% Inj 500 ML IV.SIG SCH (14:00)
[2018-03-17 14:53] LABS: Bilirubin,Urine Negative (Negative); Clarity,Urine Clear (Clear); Color,Urine Yellow (Yellw/Straw); Glucose,Urine (UA) Negative (Negative); Leukocyte Esterase,Urine Negative (Negative); Mucus,Urine Few /lpf (Occasional); Nitrite,Urine Negative (Negative)
--- NOTE | 2018-03-17 18:01 | P.PCN ---
Date of procedure: 03/17/18 Pre-op diagnosis: Pancreatic head mass Post-op diagnosis: same Procedure: PROCEDURE PERFORMED EUS with FNA INDICATION FOR PROCEDURE Pancreatic head mass PROCEDURE: The procedure, risks and benefits were discussed with Patient/POA and informed consent was obtained. Anesthesia sedated Patient with Diprivan. Patient was placed in the left lateral decubitus position. Endoscopic ultrasound: The Pentax videoscope was introduced through the oropharynx and advanced to the second portion of the duodenum. FINDINGS: A 3 x 3 cm pancreatic head mass moderately hypoechoic inhomogeneous soft well- circumscribed with no invasion of vessels and no regional lymphadenopathy 3 passes were made into this mass with good return ESTIMATED BLOOD LOSS: None SPECIMENS REMOVED: Pancreatic head mass COMPLICATIONS: None IMPRESSION: Pancreatic head mass PLAN: Await biopsies Await tumor markers Advance diet as tolerated Follow-up with GI post discharge Okay for discharge from a GI standpoint Anesthesia: MAC Surgeon: Clive Alvarez Pathology: other Condition: stable Disposition: floor
[2018-03-17] MEDS ORDERED: fentaNYL Citrate Inj 100 MCG/2 ML Ampul ONE (18:08)
--- NOTE | 2018-03-17 19:41 | P.CON ---
History of Present Illness Service: Hematology/oncology Consult date: 03/17/18 Primary Care Provider: No Primary Care Physician Chief Complaint: Abdominal pain. Nausea and vomiting. History of Present Illness: Mr. Means is a very pleasant 62-year-old man with a history of polycystic liver disease, glaucoma and obesity. The patient reports having chronic abdominal pain related to his polycystic liver disease however on Wednesday, 2017 he had acute worsening of his pain after eating a large sandwich from a local fast food chain. He reports abdominal pain was sharp, centered around the epigastric area and was associated with nausea and vomiting. He reports having had up to 6 large episodes of emesis on 03/14/2018. He was unable to keep anything down and therefore came into [facility] emergency department on 03/15/2018. He underwent imaging studies and was noted to have extensive cystic changes involving the liver consistent with his diagnosis of polycystic liver disease, in addition to that he was found to have an approximate 3 cm x 3 cm mass involving the head of the pancreas. He was referred to [facility] for further workup and management. An MRI of the abdomen with contrast and without contrast is performed on 2017, the patient was found to have innumerable cystic lesions within the liver (consistent with his history of polycystic liver disease). A 4 cm partially cystic mass was identified in the head of the pancreas, this was nonenhancing. On 03/17/2018 the patient underwent EGD with endoscopic ultrasound-guided biopsies of the pancreatic head mass. Cytology was submitted earlier today and the results are not expected for 3-4 days. The oncology service is been asked to see him to coordinate outpatient management. Review of Systems Constitutional: Denies anorexia, Denies chills Eyes: Denies blind spots, Denies blurry vision Ears, Nose, Mouth, and Throat: Denies abnormal hearing, Denies bleeding gums, Denies bad breath, Denies change in voice Cardiovascular: Denies chest pain, Denies chest pain at rest, Denies rapid, pounding, or irregular heartbeat, Denies shortness of breath, Denies shortness of breath with activity, Denies shortness of breath when lying down, Denies shortness of breath causing sudden awakening, Denies slow heart rate Respiratory: Denies change in phlegm color, Denies chest congestion, Denies cough, Denies coughing up blood Gastrointestinal: Reports abdominal pain, Reports belching, Reports vomiting, Denies black, tarry stools, Denies bloating, Denies bright, red blood in stools , Denies change in bowel habits Genitourinary: Denies blood in urine, Denies decreased urination Musculoskeletal: Denies abnormal walking Skin/Breast: Denies acne Neurologic: Denies abnormal hearing, Denies abnormal movements Psychiatric: Denies abnormal sleep pattern, Denies anxiety Endocrine: Denies cold intolerance Hematologic/Lymphatic: Denies easy bleeding Allergic/Immunologic: Reports GI upset with certain foods PMFSH - History History Provided By: Patient - Medical History Medical History: Medical History (Last Updated 03/16/18 @ 04:40 by Janet Betancourt RN) Hypertension Polycystic liver disease Hernia Ulcer - Surgical History Surgical History: Surgical History (Last Reviewed 03/15/18 @ 22:05 by AUGUSTINE Moreno) Hx of hernia repair - Tobacco History Second Hand Smoke Exposure: No Smoking Status: Never smoker - Alcohol History How Often Do You Have a Drink Containing Alcohol: 2 to 3 times a week (He reports drinking moderately) - Substance Use History Substance History: No History of Abuse - Travel History History of Recent Travel: No Medications and Allergies Active Medications: Active Medications Al Hydroxide/Mg Hydroxide (Milk Of Magnrbia Liq) 30 ml PO Q12H PRN PRN Reason: Mild Constipation Chlorhexidine Gluconate (Chlorhexidine 2% Cloth) [address] [facility] [facility] Stop: 03/20/18 13:36 Enalaprilat (Vasotec Inj) 1.25 mg IV.PUSH Q6H PRN PRN Reason: SBP > 180 DBP > 90 Last Admin: 03/16/18 04:38 Dose: 1.25 mg Piperacillin/Tazobactam/Dextrose (Zosyn 3.375 Gm Premix) 50 mls @ 100 mls/hr IV.SIG Q8H [facility] Last Admin: 03/17/18 11:16 Dose: 100 mls/hr Potassium Chloride/Sodium Chloride (Ns + Kcl 20 Meq Inj) 1,000 mls @ 75 mls/hr IV.CONT .[id number] [facility] Lactated Ringer's (Lr 1000 Ml Inj) 1,000 mls @ 30 mls/hr IV.SIG .Q24H [facility] Stop: 03/20/18 13:36 Sodium Chloride (Ns Inj) 500 mls @ 30 mls/hr IV.SIG .Q10H [facility] Stop: 03/20/18 13:36 Metoprolol Tartrate (Lopressor) [address] [facility] Stop: 03/20/18 13:36 Morphine Sulfate (Morphine Inj) 2 mg IV.PUSH Q4H PRN PRN Reason: PAIN 1-10 Ondansetron HCl (Zofran Odt) 4 mg PO Q6H PRN PRN Reason: NAUSEA Povidone Iodine (Betadine 5% Antisepsis Kit) 1 applicatio EACH NARE DIRECTOR [facility]ACC[facility] Stop: 03/20/18 13:36 Senna/Docusate Sodium (Janine-Colace) [address] [facility] Last Admin: 03/17/18 09:34 Dose: 1 tab Allergies Allergy/AdvReac Type Severity Reaction Status Date / Time albuterol Allergy Severe Seizures Verified 03/16/18 10:29 doxycycline Allergy Severe PT STATES Verified 03/16/18 10:29 LOWERS HIS IQ WHEN HE TAKES lidocaine Allergy Severe Seizures Verified 03/16/18 10:29 minocycline Allergy Severe PT STATES Verified 03/16/18 10:29 LOWER HIS IQ WHEN HE TAKES tigecycline Allergy Severe Seizures Verified 03/16/18 10:29 "ALL JACLYN" Allergy Severe SEIZUES Uncoded 03/16/18 10:29 Novacaine Allergy Severe Seizures Uncoded 03/16/18 10:29 Home Medications Medication Instructions Recorded Confirmed Type lactobacillus rhamnosus R0011 2 cap PO DAILY 03/16/18 03/16/18 History [Probiotic Digestive Care] Physical Exam Vital signs: Vital Signs 03/16/18 23:40 03/17/18 03:31 03/17/18 08:00 Temperature 98.3 F 98.7 F 99.2 F Pulse Rate 84 82 Respiratory Rate 17 17 16 Blood Pressure 129/76 127/78 137/89 Pulse Oximetry 92 L 92 L 95 03/17/18 12:00 03/17/18 18:05 03/17/18 18:15 Temperature 98.3 F 97.9 F Pulse Rate 83 80 80 Respiratory Rate 16 14 15 Blood Pressure 142/88 H 120/67 141/89 H Pulse Oximetry 96 96 98 03/17/18 18:30 03/17/18 18:45 Temperature 97.6 F Pulse Rate 77 78 Respiratory Rate 15 16 Blood Pressure 140/89 140/87 Pulse Oximetry 97 97 Intake & Output 03/17/18 03/17/18 03/18/18 06:59 18:59 06:59 Intake Total 1390 / 1390 Output Total 300 / 300 Balance 1390 / 1390 -300 / -300 Intake: IV 1150 / 1150 Zosyn 3.375 GM Premix 50 ML @ 150 / 150 100 mls/hr IV.SIG Q8H [facility] Rx#: [id number] NS Inj 1,000 ML @ 125 mls/hr IV 1000 / 1000 .SIG .Q8H [facility] Rx#:[id number] Oral 240 / 240 Output: Urine 300 / 300 Other: # Voids 3 - Constitutional no acute distress - Routine HEENT Exam Head: Present: normocephalic, atraumatic Eye: Present: EOMI, PERRL. Absent: normal accommodation, conjunctival icterus, scleral injection, conjunctivae pink ENT: Present: mucous membranes moist. Absent: mucous membranes dry - Routine Neck Exam Present: supple, full ROM. Absent: JVD, carotid bruit - Routine Respiratory Exam Present: CTA bilaterally. Absent: accessory muscle use, rales, respiratory distress, rhonchi, stridor, wheezes, crackles, distant breath sounds - Routine Cardiovascular Exam Present: RRR, S1, S2. Absent: murmur, gallop, rubs, S3, S4 - Routine Abdominal Exam Present: distended (Protuberant belly, soft, hepatomegaly noted, positive bowel sounds, tender over the right upper quadrant.) - Routine Extremities Exam Absent: cyanosis, clubbing, edema, full ROM - Routine Skin Exam Present: intact - Routine Neurological Exam Present: alert, oriented X3, CN II-XII intact - Routine Psychiatric Exam Present: normal affect Assessment and Plan - Plan 62-year-old man with history of polycystic liver disease presents the hospital with acute onset abdominal pain associated with vomiting after eating a large sandwich from fast food restaurant chain. This occurred on 03/14/2018, vomiting has subsided since then, abdominal pain is also subsided since then. Imaging studies performed in the emergency department at [facility] revealed chronic cystic changes to the liver in addition to a 4 cm mass involving the head of the pancreas. MRI confirmed presence of the pancreatic head mass. On he underwent an EGD and EUS with further characterization of the pancreatic head mass. Needle biopsies were obtained under ultrasound guidance. Oncology is been asked to see the patient for further workup and management. Concerns for a primary malignancy involving the pancreatic head. Recommendations: 1. Obtain cytology results from pancreatic head biopsy. Await results of CA 19 9 and CEA levels. 2. Arrange outpatient follow-up to review results which are anticipated in the upcoming week. Differential diagnosis includes complicated cyst involving the pancreatic head versus pancreatic head neoplasm such as adenocarcinoma or even pancreatic neuroendocrine tumors. Thank you Dr. Ennis for involving me in the care of this very pleasant patient. Outpatient follow-up will be arranged thank you. Discussed Condition With: Attending physician. The patient.
[2018-03-18] MEDS: Piperacil/Tazo 3.375 GM Premix 50 ML IV.SIG SCH ×2 (02:33→10:48)
[2018-03-18 10:03] LABS: Baso % (Auto) 0.3 % (0.0-2.0); Eos # (Auto) 0.2 th/mm3 (0.0-0.4); Eos % (Auto) 1.1 % (0.0-4.0); Hematocrit 42.6 % (39.0-51.0); Hemoglobin 14.4 gm/dL (13.0-17.0); Lymph # (Auto) 1.4 th/mm3 (1.0-4.8); Lymph % (Auto) 10.3 % (9.0-44.0); Mean Corpuscular HGB Conc 33.8 % (32.0-36.0); Mean Corpuscular Hemoglobin 28.9 pg (27.0-34.0); Mean Corpuscular Volume 85.4 fL (80.0-100.0); Mean Platelet Volume 8.7 fL (7.0-11.0); Mono # (Auto) 1.3 th/mm3 (0.0-0.9); Mono % (Auto) 9.5 % (0.0-8.0); Neut # (Auto) 10.7 th/mm3 (1.8-7.7); Neut % (Auto) 78.8 % (16.0-70.0); Platelet Count 204 th/mm3 (150-450); Red Blood Count 4.99 mil/mm3 (4.50-5.90); Red Cell Distribution Width 13.1 % (11.6-17.2); White Blood Count 13.6 th/mm3 (4.0-11.0)
--- NOTE | 2018-03-18 10:07 | ECG ---
Date Performed: 03/17/2018 Time Performed: 13:43:31 PTAGE: 62 years EKG: Sinus rhythm NONSPECIFIC T-WAVE ABNORMALITY BORDERLINE ECG NO PREVIOUS TRACING DOCTOR: Saloni Ingram Interpretating Date/Time 03/18/2018 10:05:16
[2018-03-18 10:31] LABS: Albumin 3.2 g/dL (3.4-5.0); Anion Gap 7 meq/L (5-15); Aspartate Aminotransferase 80 U/L (15-37); Blood Urea Nitrogen 10 mg/dL (7-18); Calcium 8.4 mg/dL (8.5-10.1); Carbon Dioxide 28.2 meq/L (21.0-32.0); Chloride 104 meq/L (98-107); Glomerular Filtration Rate 82 mL/min (>89); Sodium 139 meq/L (136-145)
[2018-03-18 10:39] LABS: Alanine Aminotransferase 37 U/L (12-78); Alkaline Phosphatase 65 U/L (45-117); Glucose,Random 138 mg/dL (74-106); Total Protein 7.4 g/dL (6.4-8.2)
--- NOTE | 2018-03-18 10:42 | P.PNGI ---
Subjective Interval history: Patient is resting in the bed ,noted generalized weakness, no acute abdominal pain for now Denied any nausea or vomiting, continues with IV hydration at 75 cc an hour Patient states bowel movement brown no obvious blood, after 3 days Current hemoglobin 14.8, WBC count 16, LFTs normal. <Rachel Lazo - Last Filed: 03/18/18 10:44> Physical Exam Vital signs: Vital Signs 03/17/18 12:00 03/17/18 18:05 03/17/18 18:15 Temperature 98.3 F 97.9 F Pulse Rate 83 80 80 Respiratory Rate 16 14 15 Blood Pressure 142/88 H 120/67 141/89 H Pulse Oximetry 96 96 98 03/17/18 18:30 03/17/18 18:45 03/17/18 19:48 Temperature 97.6 F 98.5 F Pulse Rate 77 78 83 Respiratory Rate 15 16 18 Blood Pressure 140/89 140/87 159/97 H Pulse Oximetry 97 97 95 03/17/18 22:58 03/18/18 04:00 03/18/18 08:00 Temperature 99.1 F 99.4 F 99.1 F Pulse Rate 81 79 83 Respiratory Rate 16 18 16 Blood Pressure 135/75 125/67 133/92 H Pulse Oximetry 96 93 L 94 L Intake & Output 03/17/18 03/18/18 03/18/18 18:59 06:59 18:59 Intake Total 50 / 50 3400 / 3400 Output Total 300 / 300 Balance -250 / -250 3400 / 3400 Intake: IV 50 / 50 2200 / 2200 NS + KCl 20 mEq Inj 1,000 ML @ 1000 / 1000 75 mls/hr IV.CONT .[id number] ROSALIE Rx#:[id number] NS Inj 1,000 ML @ 75 mls/hr IV. 1000 / 1000 CONT .[id number] ROSALIE Rx#:[id number] Zosyn 3.375 GM Premix 50 ML @ 50 / 50 100 / 100 100 mls/hr IV.SIG Q8H ROSALIE Rx#: [id number] KCl 20 mEq Premix Inj 20 meq In 100 / 100 100 ml @ 50 mls/hr IV.SIG ONCE ONE Rx#:[id number] Oral 1200 / 1200 Output: Urine 300 / 300 Other: # Voids 4 - Constitutional mild distress - Routine HEENT Exam Head: Present: normocephalic, atraumatic (Thin) ENT: Present: mucous membranes dry - Routine Neck Exam Present: supple - Routine Respiratory Exam Present: decreased breath sounds (Even, unlabored) - Routine Cardiovascular Exam Present: RRR - Routine Abdominal Exam Present: soft (Round,taut, soft bowel sounds) <Rachel Lazo - Last Filed: 03/18/18 10:44> Vital signs: Vital Signs 03/17/18 19:48 03/17/18 22:58 03/18/18 04:00 Temperature 98.5 F 99.1 F 99.4 F Pulse Rate 83 81 79 Respiratory Rate 18 16 18 Blood Pressure 159/97 H 135/75 125/67 Pulse Oximetry 95 96 93 L 03/18/18 08:00 03/18/18 12:00 Temperature 99.1 F 99.8 F H Pulse Rate 83 84 Respiratory Rate 16 18 Blood Pressure 133/92 H 143/83 H Pulse Oximetry 94 L 96 Intake & Output 03/18/18 03/18/18 03/19/18 06:59 18:59 06:59 Intake Total 3400 / 3400 Balance 3400 / 3400 Intake: IV 2200 / 2200 NS + KCl 20 mEq Inj 1,000 ML @ 1000 / 1000 75 mls/hr IV.CONT .[id number] ROSALIE Rx#:[id number] NS Inj 1,000 ML @ 75 mls/hr IV. 1000 / 1000 CONT .[id number] ROSALIE Rx#:[id number] Zosyn 3.375 GM Premix 50 ML @ 100 / 100 100 mls/hr IV.SIG Q8H ROSALIE Rx#: [id number] KCl 20 mEq Premix Inj 20 meq In 100 / 100 100 ml @ 50 mls/hr IV.SIG ONCE ONE Rx#:[id number] Oral 1200 / 1200 Other: # Voids 4 <Clive Alvarez - Last Filed: 03/18/18 19:22> Results - Labs CBC & Chem 7: 03/18/18 09:31 03/18/18 09:31 Laboratory Results - last 24 hr 03/17/18 03/17/18 03/17/18 13:40 21:03 21:03 WBC RBC Hgb Hct MCV MCH MCHC RDW Plt Count MPV Neut % (Auto) Lymph % (Auto) [place] % (Auto) Eos % (Auto) Baso % (Auto) Neut # (Auto) Lymph # (Auto) [place] # (Auto) Eos # (Auto) Baso # (Auto) WBC Differential Differential Comment Carcinoembryonic Ag 1.8 CA 19-9 Antigen 341.2 H Urine Color Yellow Urine Clarity Clear Urine pH 5.0 Ur Specific [place] 1.030 Urine Protein 30 H Urine Glucose (UA) Negative Urine Ketones 20 Urine Occult Blood Negative Urine Nitrate Negative Urine Bilirubin Negative Urine Urobilinogen 2.0 H Ur Leukocyte Esterase Negative Urine RBC Less than 1 Urine WBC 1 Urine Mucus Few H Micro UA Comment Culture not ind Urine Culture Comments Culture not ind 03/18/18 09:31 WBC 13.6 H RBC 4.99 Hgb 14.4 Hct 42.6 MCV 85.4 MCH 28.9 MCHC 33.8 RDW 13.1 Plt Count 204 MPV 8.7 Neut % (Auto) 78.8 H Lymph % (Auto) 10.3 [place] % (Auto) 9.5 H Eos % (Auto) 1.1 Baso % (Auto) 0.3 Neut # (Auto) 10.7 H Lymph # (Auto) 1.4 [place] # (Auto) 1.3 H Eos # (Auto) 0.2 Baso # (Auto) 0.0 WBC Differential . Differential Comment Auto diff final Carcinoembryonic Ag CA 19-9 Antigen Urine Color Urine Clarity Urine pH Ur Specific [place] Urine Protein Urine Glucose (UA) Urine Ketones Urine Occult Blood Urine Nitrate Urine Bilirubin Urine Urobilinogen Ur Leukocyte Esterase Urine RBC Urine WBC Urine Mucus Micro UA Comment Urine Culture Comments <Rachel Lazo - Last Filed: 03/18/18 10:44> - Labs CBC & Chem 7: 03/18/18 09:31 03/18/18 09:31 Laboratory Results - last 24 hr 03/17/18 03/17/18 03/18/18 21:03 21:03 09:31 WBC 13.6 H RBC 4.99 Hgb 14.4 Hct 42.6 MCV 85.4 MCH 28.9 MCHC 33.8 RDW 13.1 Plt Count 204 MPV 8.7 Neut % (Auto) 78.8 H Lymph % (Auto) 10.3 [place] % (Auto) 9.5 H Eos % (Auto) 1.1 Baso % (Auto) 0.3 Neut # (Auto) 10.7 H Lymph # (Auto) 1.4 [place] # (Auto) 1.3 H Eos # (Auto) 0.2 Baso # (Auto) 0.0 WBC Differential . Differential Comment Auto diff final Sodium Potassium Chloride Carbon Dioxide Anion Gap BUN Creatinine Estimated GFR Random Glucose Calcium Total Bilirubin AST ALT Alkaline Phosphatase Total Protein Albumin Carcinoembryonic Ag 1.8 CA 19-9 Antigen 341.2 H 03/18/18 09:31 WBC RBC Hgb Hct MCV MCH MCHC RDW Plt Count MPV Neut % (Auto) Lymph % (Auto) [place] % (Auto) Eos % (Auto) Baso % (Auto) Neut # (Auto) Lymph # (Auto) [place] # (Auto) Eos # (Auto) Baso # (Auto) WBC Differential Differential Comment Sodium 139 Potassium 4.0 Chloride 104 Carbon Dioxide 28.2 Anion Gap 7 BUN 10 Creatinine 0.93 Estimated GFR 82 L Random Glucose 138 H Calcium 8.4 L Total Bilirubin 0.8 AST 80 H ALT 37 Alkaline Phosphatase 65 Total Protein 7.4 Albumin 3.2 L Carcinoembryonic Ag CA 19-9 Antigen <Clive Alvarez - Last Filed: 03/18/18 19:22> Assessment and Plan (1) Pancreatic lesion Status: Acute Code(s): K86.9 - Disease of pancreas, unspecified - Plan Assessment: - Pancreatic mass seen on imaging Pt with abdominal pain that began early January, states felt like a similar H. Pylori infection so his PCP [facility] started him on Amoxicillin and Flagyl- states complete resolution of pain until 4 days ago- pain located mid abdomen above his umbilicus, constant, aching. Has tried Aloe juice, probiotics, and CBD oil with no relief. Associated nausea and vomiting. Denies personal and family history of pancreatic issues. Drinks alcohol 3 x/week but hasn't had any since pain in January. Denies smoking and illicit drug use. CT abdomen and pelvis W IV contrast --> . Ill-defined mass in the head of the pancreas measuring between 3 and 4 cm in diameter and suspicious for pancreatic malignancy. There is some surrounding adenopathy with largest lymph node measuring up to 3.2 x 1.3 cm just anterior to the left renal vein. Innumerable circumscribed low-attenuation lesions in the liver. Differential diagnosis includes simple and complex cysts but cannot exclude metastatic disease. MR abdomen W and WO contrast --> 4 cm partially cystic masslike abnormality in the head of the pancreas does not demonstrate significant enhancement. Malignancy cannot be excluded. Numerous simple cysts throughout the liver and a few renal cysts have benign characteristics. Last EGD 20 years ago, states normal exam. Last colonoscopy 2 years ago and states polyps removed. - Elevated AST- currently 189- rest of LFTs WNL Pt with known history of polycystic liver disease 03/18/2018, patient is status post EUS with FNA for pancreatic head mass. Findings include a 33 cm pancreatic head mass with moderate hypoechoic homogenous soft well circumcised with no invasion of vessels and passes were made into this mass with good return. Patient tolerated procedure well. Current labs show hemoglobin 14.8, WBC count 16, CA 19 341.2. Currently patient denies any nausea or vomiting but minimal appetite. Discussed bowel regimen with some struggles with constipation at this point. BM in the past 24 hours after 3 days. Supportive care and encouraged nutrition and hydration is much as possible. Can follow on an outpatient basis if needed. Plan: Diet per attending, encouraged hydration and patient to eat small amounts frequently to maintain appetite Biopsies pending. Patient will need follow-up outpatient treatment regimen, seen per Dr. Parr Pain management per attending Anti-medics, Zosyn Monitor labs Supportive care Patient was seen per myself and Dr. Alvarez, this note was written on his behalf <Rachel Lazo - Last Filed: 03/18/18 10:44> (1) Pancreatic lesion Status: Acute Code(s): K86.9 - Disease of pancreas, unspecified - Attending Attestation Patient seen and examined Agree with above Continue current supportive care Monitor labs Correction to the endoscopy report mass was inhomogeneous <Clive Alvarez - Last Filed: 03/18/18 19:22>
[2018-03-18] MEDS: Senna/Docusate Sodium 8.6/50 MG Tablet PO SCH (10:49)
--- NOTE | 2018-03-18 12:09 | P.DS ---
<Stephanie Daniels W - Last Filed: 03/18/18 12:17> Date of admission: 03/16/18 09:28 Primary care physician: No Primary Care Physician Attending physician on discharge: Deny Ennis Anticipated date of discharge: 03/18/18 Brief History from admission: This is a 62 year old male patient with a past medical history which includes polycystic liver disease and seizure reaction to, "all rosa." Patient started having abd pain around the end of January and was treated for assumed H. pylori infection with amoxicillin and Flagyl. Patient reports he ate a hamburger from [employer] 03/14/18 around 8:00 PM then began having abdominal pain around 0500 on 03/15/18. Patient then presented to [facility] ER with complaints of abdominal pain and distention that began around 5 AM on 03/15/18. Patient describes pain as a pressure-like pain with a sensation of something being stuck in his epigastric area. Reports pain radiates throughout his abdomen. Patient states that he had vomited about 7 times yesterday. Describes the vomitus as non-bloody and non-bilious. He states he is tried drinking water and taking Zantac with no improvement of symptoms. Patient's last had a bowel movement around 10 AM 03/15/18 but had to use an enema and was normal. Patient denies any fevers, chills, back pains, chest pain, shortness of breath, diarrhea. PMH: polycystic liver disease PSxH: Umbilical hernia repair x 2 tonsillectomy Family medical history: polycyclic liver disease in both brother and sister mother had lung CA father secondary to Social history: Denies ETOH use Denies Tobacco use now or in the past Denies Illicit drug use Medication allergies: reported allergy to, "all rosa" albuterol doxycycline lidocaine minocycline tigecycline DS: Medications - Discharge Medications Prescriptions: levofloxacin [Levaquin] 500 mg PO DAILY 5 Days #5 tab DS: Summary Hospital Course: Abdominal pain Pancreatic Mass - 62 y/o M with h/o polycystic liver disease and seizure reaction to, "all rosa." - Patient started having abd pain around the end of January and was treated for assumed H. pylori infection with amoxicillin and Flagyl. - Patient reports he ate a hamburger from [employer] 03/14/18 around 8:00 PM then began having abdominal pain around 0500 on 03/15/18. - Patient then presented to [facility] ER with complaints of abdominal pain and distention that began around 5 AM on 03/15/18. - Patient describes pain as a pressure-like pain with a sensation of something being stuck in his epigastric area. Reports pain radiates throughout his abdomen. - Patient states that he had vomited about 7 times the day prior to admission - Pt describes the vomitus as non-bloody and non-bilious. - Pt states he tried drinking water and taking Zantac with no improvement of symptoms. - CT a/p without contrast (03/15) - suspected head of the Pancrease mass - innumerable hepatic lesions (c/w pt's hx of polycystic liver disease) - CT A/P with contrast (03/16) - head of the pancrease mass - some surrounding adenopathy with largest LN 3.2 x 1.3 cm anterior to the left renal vein - innumerable hepatic lesions - MRI A/P with contrast (03/16) - 4cm cystic masslike abnormality in the head of the pancreas without significant enhancement - PET/CT recommended - numerous simple cyst thourout the fiver & a few renal cysts with benign characteristics - AST 461 (03/15), 381 (03/16), 189 (03/17). Alcohol abuse? - leukocytosis, unclear etiology. -WBC 18 (03/15), 15 (03/16), 16 (03/17) - continue zosyn for now (03/15 - present) - CXR (03/15) --> no acute findings - UA (03/15) --> moderate occult blood, cx NOT indicated - repeat UA protein High, neg nitrates, neg Leukocyte Esterase- culture not indicated - Dr. Ennis discussed the case with Oncology, Dr. Brandon Parr. - Dr. Ennis discussed the case with Gastroenterology, Dr. Alvarez. - Initially NPO, patient now tolerating PO intake - S/P EUS with Pancrease Bx 03/18/[address] Alvarez - pathology pending - CA19-9 341.2, CEA 1.8 - patient made aware, patient to follow up with Oncology, PCP and GI after DC - DVT prophylaxis with SCDs - supportive care - Time Spent with Patient Total time spent providing and/or coordinating discharge services: - Quality: VTE Deep Vein Thrombosis/Pulmonary Embolism Present on Admission: No Exam Vital signs: Vital Signs 03/17/18 18:05 03/17/18 18:15 03/17/18 18:30 Temperature 97.9 F Pulse Rate 80 80 77 Respiratory Rate 14 15 15 Blood Pressure 120/67 141/89 H 140/89 Pulse Oximetry 96 98 97 03/17/18 18:45 03/17/18 19:48 03/17/18 22:58 Temperature 97.6 F 98.5 F 99.1 F Pulse Rate 78 83 81 Respiratory Rate 16 18 16 Blood Pressure 140/87 159/97 H 135/75 Pulse Oximetry 97 95 96 03/18/18 04:00 03/18/18 08:00 Temperature 99.4 F 99.1 F Pulse Rate 79 83 Respiratory Rate 18 16 Blood Pressure 125/67 133/92 H Pulse Oximetry 93 L 94 L Intake & Output 03/17/18 03/18/18 03/18/18 18:59 06:59 18:59 Intake Total 50 / 50 3400 / 3400 Output Total 300 / 300 Balance -250 / -250 3400 / 3400 Intake: IV 50 / 50 2200 / 2200 NS + KCl 20 mEq Inj 1,000 ML @ 1000 / 1000 75 mls/hr IV.CONT .[id number] ROSALIE Rx#:[id number] NS Inj 1,000 ML @ 75 mls/hr IV. 1000 / 1000 CONT .[id number] ROSALIE Rx#:[id number] Zosyn 3.375 GM Premix 50 ML @ 50 / 50 100 / 100 100 mls/hr IV.SIG Q8H ROSALIE Rx#: [id number] KCl 20 mEq Premix Inj 20 meq In 100 / 100 100 ml @ 50 mls/hr IV.SIG ONCE ONE Rx#:[id number] Oral 1200 / 1200 Output: Urine 300 / 300 Other: # Voids 4 Narrative: GENERAL: This is a well-nourished, well-developed patient, in no apparent distress. CARDIOVASCULAR: Regular rate and rhythm without murmurs, gallops, or rubs. RESPIRATORY: Clear to auscultation. Breath sounds equal bilaterally. No wheezes , rales, or rhonchi. GASTROINTESTINAL: Abdomen soft, non-tender, nondistended. Normal active bowel sounds liver is palpable 4 inches below the rib margin on the right MUSCULOSKELETAL: Extremities without clubbing, cyanosis, or edema. NEURO: Alert & Oriented x4 to person, place, time, situation. Moves all ext x4 Results Procedures completed during hospitalization: S/P EUS with Pancrease Bx 03/18/[address] Alvarez Pending studies at discharge: Pending at discharge 03/17/18 Cytology [PTH] Routine Labs on day of discharge: Labs from last 24 hours 03/18/18 03/18/18 03/17/18 09:31 09:31 21:03 WBC 13.6 H RBC 4.99 Hgb 14.4 Hct 42.6 MCV 85.4 MCH 28.9 MCHC 33.8 RDW 13.1 Plt Count 204 MPV 8.7 Neut % (Auto) 78.8 H Lymph % (Auto) 10.3 [place] % (Auto) 9.5 H Eos % (Auto) 1.1 Baso % (Auto) 0.3 Neut # (Auto) 10.7 H Lymph # (Auto) 1.4 [place] # (Auto) 1.3 H Eos # (Auto) 0.2 Baso # (Auto) 0.0 WBC Differential . Differential Comment Auto diff final Sodium 139 Potassium 4.0 Chloride 104 Carbon Dioxide 28.2 Anion Gap 7 BUN 10 Creatinine 0.93 Estimated GFR 82 L Random Glucose 138 H Calcium 8.4 L Total Bilirubin 0.8 AST 80 H ALT 37 Alkaline Phosphatase 65 Total Protein 7.4 Albumin 3.2 L Carcinoembryonic Ag 1.8 CA 19-9 Antigen Urine Color Urine Clarity Urine pH Ur Specific [place] Urine Protein Urine Glucose (UA) Urine Ketones Urine Occult Blood Urine Nitrate Urine Bilirubin Urine Urobilinogen Ur Leukocyte Esterase Urine RBC Urine WBC Urine Mucus Micro UA Comment Urine Culture Comments 03/17/18 03/17/18 21:03 13:40 WBC RBC Hgb Hct MCV MCH MCHC RDW Plt Count MPV Neut % (Auto) Lymph % (Auto) [place] % (Auto) Eos % (Auto) Baso % (Auto) Neut # (Auto) Lymph # (Auto) [place] # (Auto) Eos # (Auto) Baso # (Auto) WBC Differential Differential Comment Sodium Potassium Chloride Carbon Dioxide Anion Gap BUN Creatinine Estimated GFR Random Glucose Calcium Total Bilirubin AST ALT Alkaline Phosphatase Total Protein Albumin Carcinoembryonic Ag CA 19-9 Antigen 341.2 H Urine Color Yellow Urine Clarity Clear Urine pH 5.0 Ur Specific [place] 1.030 Urine Protein 30 H Urine Glucose (UA) Negative Urine Ketones 20 Urine Occult Blood Negative Urine Nitrate Negative Urine Bilirubin Negative Urine Urobilinogen 2.0 H Ur Leukocyte Esterase Negative Urine RBC Less than 1 Urine WBC 1 Urine Mucus Few H Micro UA Comment Culture not ind Urine Culture Comments Culture not ind - Impressions ITS Impressions Abdomen MRI 03/16/18 00:00 CONCLUSION: 1. 4 cm partially cystic masslike abnormality in the head of the pancreas does not demonstrate significant enhancement. Malignancy cannot be excluded. May consider performing outpatient PET/CT scan with fluorodeoxyglucose to evaluate whether this is a metabolically active lesion and to help in decision making regarding possible biopsy. 2. Numerous simple cysts throughout the liver and a few renal cysts have benign characteristics. <Deny Ennis - Last Filed: 03/22/18 00:44> Date of admission: 03/16/18 09:28 Primary care physician: No Primary Care Physician DS: Diagnosis - Discharge Diagnosis (1) Abdominal pain Status: Acute (2) Leukocytosis, unspecified Status: Acute (3) Pancreatic lesion Status: Acute (4) Polycystic liver disease, congenital Status: Acute DS: Summary Hospital Course: Patient examined. Assessment and plan formulated with Stephanie Daniels PA-C. I agree with the above. - Time Spent with Patient Total time spent providing and/or coordinating discharge services: Greater than 30 minutes Results - Impressions ITS Impressions Abdomen MRI 03/16/18 00:00 CONCLUSION: 1. 4 cm partially cystic masslike abnormality in the head of the pancreas does not demonstrate significant enhancement. Malignancy cannot be excluded. May consider performing outpatient PET/CT scan with fluorodeoxyglucose to evaluate whether this is a metabolically active lesion and to help in decision making regarding possible biopsy. 2. Numerous simple cysts throughout the liver and a few renal cysts have benign characteristics. Discharge Plan - Discharge Order Discharge Orders: Discharge Order (Routine); Ordered 03/18/18 Ordered By: Stephanie Daniels - Discharge Details Anticipated Discharge Date: 03/18/18 - Physicians Team Primary Care Provider: Primary Care Physici,No Attending Provider: Deny Ennis Other Providers: Clive Alvarez MD ; Brandon Parr MD - Rxs /Orders / Referrals /Forms Prescriptions: New levofloxacin [Levaquin] 500 mg Tablet 500 mg PO DAILY 5 Days Qty: 5 RF: 0 Continue lactobacillus rhamnosus R0011 [Probiotic Digestive Care] 20 billion cell Capsule 2 cap PO DAILY Referrals: Primary Care Tanya Salinas [Primary Care Provider] - See Instructions (Follow up with PCP Dr. Sarmiento in 1 week) Clive Alvarez MD [Physician] - See Instructions (follow up in 1 week) Brandon Parr MD [Physician] - See Instructions (follow up in 1 week)
[2018-03-18 12:34] VITALS: BP 143/83; PULSE 84; RESP 18; TEMP 99.8; O2SAT 96
== END 2018-03-18 15:00 | disposition home or self-care (01) ==
LOC: NEDDLT 21:34 → NEPHCDU 21:34 → INTOOBSV 03-16 03:20 → NEPHCDU 03-16 03:20
PROVIDERS: ADMIT Hospitalist; ATTEND Hospitalist